=== PATIENT | female | born 1945 | race Asian ===

== ENCOUNTER 2018-01-07 22:14 | Emergency (ER) | payer MEDICARE, OTHER ==
[~2018-01-07] VITALS: Ht 149.9 cm; Wt 61.8 kg
[2018-01-07] MEDS ORDERED: ERYTHROMYCIN 0.5% 3.5 GM TUBE OPHTHALMIC OINTMENT OU ONE (23:45)
[2018-01-07] MEDS ORDERED: ACETAMINOPHEN/CODEINE 300-30 MG TABLET PO ONE (23:45)
[2018-01-07] MEDS ORDERED: PROPARACAINE HCL 0.5% 15 ML OPHTHALMIC SOLUTION OU ONE (23:45)
[2018-01-08 00:04] VITALS: BP 135/72
== END 2018-01-08 00:06 | disposition home or self-care (01) ==
LOC: EMS 22:17
DX: H10.213 Acute toxic conjunctivitis, bilateral (principal); E78.00 Pure hypercholesterolemia, unspecified
CPT/HCPCS: 99284